=== PATIENT | male | born 1970 | race Caucasian/White ===

== ENCOUNTER 2019-07-10 11:20 | Emergency (ER) | payer BC ==
[~2019-07-10] VITALS: Ht 180.3 cm; Wt 104.0 kg
[2019-07-10 11:25] VITALS: BP 157/93
--- NOTE | 2019-07-10 11:41 | NUR ---
PATIENT BROUGHT BACK FROM TRIAGE WITH CHIEF COMPLAINT OF HICCUPS SINCE THURSDAY. PATIENT HAS NO COMPLAINTS OF CP, NV, SOB. THE PATIENT IS ALERT, ORIENTED, WARM AND DRY. PATIENTS IS AT BEDSIDE. ERMD AT BEDSIDE FOR EVALUATION.
--- NOTE | 2019-07-10 11:59 | NUR ---
DISCHARGE INSTRUCTIONS REVIEWED
== END 2019-07-10 12:10 ==
LOC: ED 11:58
DX: R06.6 Hiccough (principal)
CPT/HCPCS: 99283